=== PATIENT | female | born 1985 | race American Indian/Alaskan Native ===

== ENCOUNTER 2017-12-19 23:35 | Emergency (ER) | payer MEDICAID, OTHER ==
[2017-12-19 23:43] VITALS: RESP 20
[2017-12-20 00:22] LABS: HCG,QUALITATIVE URINE NEGATIVE (NEGATIVE); SQUAMOUS EPITHIAL 12 /hpf (0-5); URINE BACTERIA RARE (<OCC); URINE BILIRUBIN NEGATIVE (NEGATIVE); URINE BLOOD NEGATIVE (NEGATIVE); URINE CLARITY Hazy (Clear); URINE COLOR Yellow (YELLOW); URINE GLUCOSE (UA) NORMAL (Normal); URINE LEUKOCYTE ESTERASE NEG Leu/uL (Negative); URINE PROTEIN NEGATIVE (NEGATIVE); URINE UROBILINOGEN NORMAL mg/dL (0.2-1.0)
[2017-12-20] MEDS ORDERED: Sodium Chloride 0.9% 1,000 ML IV ONE (00:35)
--- NOTE | 2017-12-20 00:35 | C.PDOC ---
History Of Present Illness 32 year old female presents to the emergency department with complaints of abdominal pain associated with nausea, vomiting, and diarrhea for one day. Patient states that her symptoms worsened at work yesterday, and she feels as if her abdomen is bloated. Time Seen by Provider: 12/20/17 00:35 Chief Complaint (Nursing): Abdominal Pain History Per: Patient History/Exam Limitations: no limitations Onset/Duration Of Symptoms: Days (1) Current Symptoms Are (Timing): Worse Location Of Pain/Discomfort: Other (abdomen) Quality Of Discomfort: "Pain", Other (bloating) Associated Symptoms: Nausea, Vomiting, Diarrhea Past Medical History Reviewed: Historical Data, Nursing Documentation, Vital Signs Vital Signs: Last Vital Signs Temp 97.7 F 12/19/17 23:41 Pulse 69 12/19/17 23:41 Resp 20 12/19/17 23:41 BP 136/93 H 12/19/17 23:41 Pulse Ox 96 12/20/17 01:35 - Medical History PMH: No Chronic Diseases Surgical History: No Surg Hx Family History: States: No Known Family Hx - Social History Hx Alcohol Use: Yes Hx Substance Use: No Review Of Systems Gastrointestinal: Positive for: Nausea, Vomiting, Abdominal Pain, Diarrhea Physical Exam - Physical Exam Appears: Non-toxic, No Acute Distress Skin: Warm, Dry Head: Normacephalic Eye(s): bilateral: Normal Inspection Oral Mucosa: Moist Neck: Trachea Midline, Supple Chest: Symmetrical, No Tenderness Cardiovascular: Rhythm Regular, No Murmur Respiratory: No Rales, No Rhonchi, No Wheezing Gastrointestinal/Abdominal: Soft, Tenderness (mild, mid-epigastric tenderness), No Distention, No Guarding, No Rebound Extremity: Bilateral: Normal Color And Temperature Pulses: Left Dorsalis Pedis: Normal, Right Dorsalis Pedis: Normal Neurological/Psych: Oriented x3 ED Course And Treatment - Laboratory Results Result Diagrams: 12/20/17 01:18 12/20/17 01:18 O2 Sat by Pulse Oximetry: 96 (RA) Pulse Ox Interpretation: Normal Progress Note: Plan: CMP. Lipase. CBC. Protonix 40mg IVP. NaCl IV Fluids. Zofran 4mg IVP. HCG Qualitative Urine. Urinalysis Reevaluation Time: 04:48 Reassessment Condition: Improved Disposition Counseled Patient/Family Regarding: Studies Performed, Diagnosis, Need For Followup - Disposition Referrals: Wassef,Wagih G, MD [Non-Staff] - Disposition: HOME/ ROUTINE Disposition Time: 00:35 Condition: FAIR Additional Instructions: Please return if symptom recur. Will also need to obtain a mamogram regarding right breast nodule Instructions: Acute Abdomen (Belly Pain), Adult (DC) Forms: [facility] (Citizen [place]) - Clinical Impression Clinical Impression: Abdominal pain, Breast nodule - Scribe Statement The provider has reviewed the documentation as recorded by the Scribe (Cody Evans) Provider Attestation: All medical record entries made by the Scribe were at my direction and personally dictated by me. I have reviewed the chart and agree that the record accurately reflects my personal performance of the history, physical exam, medical decision making, and the department course for this patient. I have also personally directed, reviewed, and agree with the discharge instructions and disposition.
[2017-12-20] MEDS ORDERED: Sodium Chloride 0.9% 1,000 ML ONE (01:10)
[2017-12-20 01:20] LABS: BASO % 0.9 % (0.0-2.0); EOS # 0.1 K/uL (0.0-0.7); EOS % 2.1 % (0.0-4.0); HEMOGLOBIN 11.6 g/dL (11.0-16.0); LYMPH # 1.7 K/uL (1.0-4.3); LYMPH % 34.1 % (20.0-40.0); MEAN CELL VOLUME 81.7 fL (81.0-99.0); MEAN PLATELET VOLUME 8.3 fL (7.2-11.7); MONO # 0.5 K/uL (0.0-0.8); NEUT # 2.5 K/uL (1.8-7.0); NEUT % 51.9 % (50.0-75.0); NRBC % 0.2 % (0.0-2.0); RBC 4.3 Mil/uL (3.80-5.20); RED CELL DISTRIBUTION WIDTH 16.6 % (11.5-14.5); WHITE BLOOD COUNT 4.9 K/uL (4.8-10.8)
[2017-12-20 01:33] LABS: ALB/GLOB RATIO 1.5 (1.0-2.1); ALBUMIN 3.9 g/dL (3.5-5.0); ALT/SGPT 30 U/L (9-52); AST/SGOT 9 U/L (14-36); BLOOD UREA NITROGEN 10 mg/dL (7-17); CALCIUM 8.6 mg/dl (8.6-10.4); GFR AFRICAN-AMERICAN > 60; GFR NON-AFRICAN AMERICAN > 60; LIPASE 101 U/L (23-300)
[2017-12-20] MEDS ORDERED: Iodixanol 320 MG/ML 100 ML BOTTLE IV ONE (02:19)
[2017-12-20 05:06] VITALS: BP 130/84; PULSE 70; TEMP 98; O2SAT 98
--- NOTE | 2017-12-20 19:09 | CT ---
Date of service: 12/20/2017 PROCEDURE: CT Abdomen and Pelvis with contrast HISTORY: abd pain, mid epigastric COMPARISON: None. TECHNIQUE: Contrast dose: 100 mL Visipaque 320. Axial and reformatted coronal and sagittal CT images of the abdomen and pelvis were obtained after IV contrast administration. Radiation dose: Total exam DLP = 723.6 mGy-cm. This CT exam was performed using one or more of the following dose reduction techniques: Automated exposure control, adjustment of the mA and/or kV according to patient size, and/or use of iterative reconstruction technique. FINDINGS: LOWER THORAX: There is with defined soft tissue lesion at the right breast measures 3.6 centimeter in the largest AP diameter and 2.2 centimeter in the transverse diameter may represent benign breast lesion such as fibroadenoma. However further assessment is suggested. LIVER: Unremarkable. No gross lesion or ductal dilatation. GALLBLADDER AND BILE DUCTS: Unremarkable. PANCREAS: Unremarkable. No gross lesion or ductal dilatation. SPLEEN: Unremarkable. ADRENALS: Unremarkable. No mass. KIDNEYS AND URETERS: Unremarkable. No hydronephrosis. No solid mass. Low-attenuation lesion at the upper pole of the left kidney measures 1.3 centimeter. VASCULATURE: Unremarkable. No aortic aneurysm. BOWEL: Unremarkable. No obstruction. No gross mural thickening. APPENDIX: Normal appendix. PERITONEUM: Unremarkable. No free fluid. No free air. LYMPH NODES: Slightly prominent mesenteric lymph nodes seen. There is 1.3 centimeter right inguinal lymph nodes. BLADDER: Unremarkable. REPRODUCTIVE: Unremarkable. BONES: No acute fracture. OTHER FINDINGS: None. IMPRESSION: Right breast soft tissue lesion may represent benign fibroadenoma. However further assessment is recommended. No evidence of cholecystitis pancreatitis or appendicitis. Preliminary report was submitted by [facility].
== END 2017-12-20 05:04 | disposition home or self-care (01) ==
LOC: C.ER 23:35
DX: N63.0 Unspecified lump in unspecified breast (principal); R10.9 Unspecified abdominal pain
CPT/HCPCS: 74177; 80053; 81001; 83690; 84703; 85025; 96361; 96374; 96375; 99284; C9113; J2405; J7030; Q9967